=== PATIENT | female | born 1980 ===

== ENCOUNTER 2017-06-11 14:30 | Emergency (ER) | payer SELFPAY ==
[2017-06-11 15:13] VITALS: BP 146/80; PULSE 79; RESP 16; TEMP 97.3; O2SAT 98
--- NOTE | 2017-06-11 15:42 | C.PDOC ---
History Of Present Illness 37 year old female presents to the ED c/o left ear pain and decreased hearing for the past 2 weeks. Patient reports using debrox, but felt a burning sensation after using it so she stopped. Patient denies fever, chills, nausea, vomit, diarrhea, headache, dizziness. Time Seen by Provider: 06/11/17 15:23 Chief Complaint (Nursing): Foreign Body History Per: Patient History/Exam Limitations: None Onset/Duration Of Symptoms: Days Current Symptoms Are (Timing): Still Present Quality (Ear): Pain W/Touch Severity: None Anticoagulant/Antiplatlet Use?: No Recent Aspirin Use: No Past Medical History Reviewed: Historical Data, Nursing Documentation, Vital Signs Vital Signs: Last Vital Signs Temp 97.3 F L 06/11/17 15:11 Pulse 79 06/11/17 15:11 Resp 16 06/11/17 15:11 BP 146/80 06/11/17 15:11 Pulse Ox 98 06/11/17 16:03 - Medical History PMH: No Chronic Diseases Surgical History: No Surg Hx Family History: States: Unknown Family Hx - Social History Hx Alcohol Use: No Hx Substance Use: No - Immunization History Hx Tetanus Toxoid Vaccination: No Hx Influenza Vaccination: No Hx Pneumococcal Vaccination: No Review Of Systems Constitutional: Negative for: Fever, Chills ENT: Positive for: Ear Pain. Negative for: Ear Discharge, Throat Pain, Throat Swelling Cardiovascular: Negative for: Chest Pain Respiratory: Negative for: Cough, Shortness of Breath Gastrointestinal: Negative for: Nausea, Vomiting, Abdominal Pain Skin: Negative for: Rash Neurological: Negative for: Weakness, Numbness, Headache Physical Exam - Physical Exam Appears: Non-toxic, No Acute Distress Skin: Normal Color, Warm, Dry Head: Atraumatic, Normacephalic Eye(s): bilateral: Normal Inspection, PERRL Ear(s): Left: TM Obscured By Wax, Other (erythematous, whitish debries in canal with serum vizualized TM not visible, no mastoid tenderness), Right: Normal ( Dull) Nose: No Discharge Oral Mucosa: Moist Neck: Supple Neurological/Psych: Oriented x3, Normal Speech, Normal Cognition ED Course And Treatment O2 Sat by Pulse Oximetry: 98 (On RA) Pulse Ox Interpretation: Normal Medical Decision Making Medical Decision Making: pt with cerumen impaction and otitis externa; will d/c with cortisporin otic, tylenol and ent f/u Disposition Counseled Patient/Family Regarding: Diagnosis, Need For Followup, Rx Given - Disposition Referrals: Shawn Faulkner MD [Staff Provider] - Disposition: HOME/ ROUTINE Disposition Time: 15:43 Condition: STABLE Additional Instructions: Use gotas antibiticas segn lo prescrito. Tylenol para el dolor No pongas nada en eas. Llame a la oficina del Dr. Faulkner para hacer zenia angie de seguimiento. Use antibiotic drops as prescribed. Tylenol for pain. Do not put anything into eas. Call Dr Faulkner's office to make a follow up appointment. Prescriptions: Acetaminophen [Tylenol 325mg tab] 650 mg PO Q6 #30 tab Neomycin/Polymyxin/Hydrocortis [Cortisporin Otic Susp] 4 drop QID #1 bottle Instructions: Otitis Externa (ED), Cerumen Impaction (ED) Forms: Gen Discharge Inst Gabonese, Invajo (Gabonese) Print Language: LAO - Clinical Impression Clinical Impression: Otitis externa, left, Impacted cerumen of left ear - PA / [employer] / Resident Statement MD/DO has reviewed & agrees with the documentation as recorded. - Scribe Statement The provider has reviewed the documentation as recorded by the Scribe Yeison Johns All medical record entries made by the Scribe were at my direction and personally dictated by me. I have reviewed the chart and agree that the record accurately reflects my personal performance of the history, physical exam, medical decision making, and the department course for this patient. I have also personally directed, reviewed, and agree with the discharge instructions and disposition.
== END 2017-06-11 15:56 | disposition home or self-care (01) ==
LOC: C.ER 14:30
DX: H60.92 Unspecified otitis externa, left ear (principal); H61.22 Impacted cerumen, left ear